=== PATIENT | male | born 1940 | race Caucasian/White ===

== ENCOUNTER 2017-12-10 05:39 | Day surgery (SDC) | payer MEDICARE, OTHER ==
[2017-12-09 10:35] VITALS: BMI 28.7
[2017-12-10] MEDS ORDERED: CEFAZOLIN/Water 2 GM/20 ML SYRINGE ONE ×2 (06:19→09:58)
[2017-12-10] MEDS ORDERED: Thrombin 5000 UNITS/5 ML VIAL ONE (06:28)
[2017-12-10 06:34] LABS: Anion Gap 12 mmol/L (10-20); BUN (Urea Nitrogen) 23 mg/dL (8.4-25.7); Calc. Creatinine Clearance 88 mL/min (70-130); Calcium 9.2 mg/dL (7.8-10.44); Carbon Dioxide 23 mmol/L (23-31); Chloride 107 mmol/L (98-107); Estimated GFR-MDRD 74; Glucose 90 mg/dL (83-110); Potassium 3.8 mmol/L (3.5-5.1); Sodium 138 mmol/L (136-145)
[2017-12-10] MEDS ORDERED: Phenylephrine HCL 10 MG/ML VIAL ONE (06:39)
[2017-12-10] MEDS ORDERED: Fentanyl 100 MCG/2 ML VIAL ONE (06:52)
[2017-12-10] MEDS ORDERED: Famotidine/PF 20 mg/2ml Vial ONE (06:58)
[2017-12-10] MEDS ORDERED: HYDROmorphone 0.5 MG/0.5 ML SYRINGE ONE (08:07)
[2017-12-10] MEDS ORDERED: Tamsulosin HCl 0.4 MG CAP ONE (09:04)
[2017-12-10] MEDS ORDERED: Ondansetron HCl/PF 4 MG/2 ML Vial ONE (10:26)
--- NOTE | 2017-12-10 13:13 | OP ---
DATE OF PROCEDURE: 12/10/2017 SURGEON: Alex Nathan M.D. MANAGER OF ENGINEERING: Silver Villarreal PA-C INDICATION: Pain. DIAGNOSIS: Cervical radiculopathy. PROCEDURE: Anterior cervical discectomy and fusion, C5-6. ANESTHESIA: General. TECHNIQUE: The patient was brought into the operating room and placed on general anesthesia. He was placed on the table in supine position. A transverse incision was planned over the lateral aspect o f the neck on the right. After prepping and draping and after an appropriate operative pause, the in cision was created. The underlying platysma muscles identified and incised. A blunt tissue plane an terior to the sternocleidomastoid muscle was used to gain access to the prevertebral space. Self-ret aining retractors were placed. The wound for optimal exposure. An annulotomy was performed in the C 5-6 disk space. All disk material as well as anterior and posterior osteophytes were removed. After complete decompression, 6 mm lordotic PEEK cage packed with allograft and autograft material was yakov roberto within the interbody space. An anterior cervical plate was then fashioned in front of the spine and secured with a total of 4 fixed screws. Midline and lateral structures were inspected and found to be free from significant trauma. The wound was irrigated. Hemostasis was maintained throughout. The wound was then closed in anatomic layers and a pressure dressing was applied. There were no kno wn procedural complications.
[2017-12-10] MEDS ORDERED: PROPOFOL 200 MG/20 ML VIAL ONE (14:52)
[2017-12-10] MEDS ORDERED: Glycopyrrolate 0.2 MG/ML 5 ML SYRINGE ONE ×2 (14:52)
[2017-12-10] MEDS ORDERED: PHENYLEPHRINE-NS 100 MCG/ML 10 ML SYRINGE ONE (14:52)
[2017-12-10] MEDS ORDERED: Dexamethasone 20 MG/5 ML VIAL ONE (14:52)
[2017-12-10] MEDS ORDERED: Lidocaine 1% PF 5 ML VIAL ONE (14:52)
--- NOTE | 2017-12-12 14:00 | HP ---
HISTORY OF PRESENT ILLNESS: Mr. Salinas is a 77-year-old man who is known to us for two previous lumb ar surgeries who presents now for evaluation of C6, possibly C7 radiculopathy to the left upper extre mity. He has had an MRI of the cervical spine at [facility] that support this with pathology between C5 and C6, impacting the C6 nerve root at that level. He has attempted several conservative treatme nts including injections and therapies and at this time would like to move forward with surgery if po ssible. PAST MEDICAL HISTORY: Significant for hyperlipidemia, gastroesophageal reflux disease, neuropathy, h ypertension. MEDICATIONS: Simvastatin, omeprazole, latanoprost, gabapentin, lisinopril, naproxen, hydrochlorothia zide, ascorbic acid, . PAST SURGICAL HISTORY: Appendectomy, . INCOMPLETE
--- NOTE | 2017-12-13 18:37 | EKG ---
Test Reason : PREOP Blood Pressure : / mmHG Vent. Rate : 055 BPM Atrial Rate : 055 BPM P-R Int : 144 ms QRS Dur : 100 ms QT Int : 474 ms P-R-T Axes : 065 007 -07 degrees QTc Int : 453 ms Sinus bradycardia Otherwise normal ECG When compared with ECG of 17-FEB-2017 07:03, No significant change was found Confirmed by JESSICA GTZ (2) on 12/13/2017 6:37:04 PM Referred By: URBANO Confirmed By:JESSICA GTZ
== END 2017-12-10 10:45 | disposition home or self-care (01) ==
LOC: SDC 05:39
PROVIDERS: ATTEND Neurological Surgery
PROC: 0RG10A0 Fusion of Cervical Vertebral Joint with Interbody Fusion Device, Anterior Approach, Anterior Column, Open Approach (ICD-10-PCS; principal; 2017-12-10)
PROC: 0RT30ZZ Resection of Cervical Vertebral Disc, Open Approach (ICD-10-PCS; 2017-12-10)
DX: M54.12 Radiculopathy, cervical region (principal); E78.5 Hyperlipidemia, unspecified; K21.9 Gastro-esophageal reflux disease without esophagitis; I10 Essential (primary) hypertension; G62.9 Polyneuropathy, unspecified; Z79.1 Long term (current) use of non-steroidal anti-inflammatories (NSAID); Z79.899 Other long term (current) drug therapy
CPT/HCPCS: 20930; 20936; 22551; 22853; 76001; 80048; 93005; C1713; C1776; 36415; 93010; J0131; J1100; J1170; J2001; J2370; J2405; J2704; J3010; S0028

== ENCOUNTER 2018-04-17 20:15 | Inpatient (IN) | payer MEDICARE ==
[2018-04-17 21:40] LABS: Troponin I Less than 0.010 ng/mL (< 0.028)
[2018-04-17] MEDS ORDERED: Ondansetron ODT 4 MG TAB SL PRN (22:48)
[2018-04-17] MEDS ORDERED: Acetaminophen 325 MG TAB PO PRN (22:48)
[2018-04-17] MEDS ORDERED: Ondansetron HCl/PF 4 MG/2 ML Vial IVP PRN (22:48)
[2018-04-17] MEDS ORDERED: Enoxaparin Sodium 120 MG/0.8 ML SYRINGE SC SCH (23:00)
[2018-04-17] MEDS ORDERED: Aspirin 325 MG TAB PO SCH (23:00)
[2018-04-17 23:20] VITALS: BMI 27.5
[2018-04-18] MEDS: Ketorolac Tromethamine 30 MG/ML VIAL IVP PRN ×2 (00:18→10:39)
[2018-04-18] MEDS: Sodium Chloride 0.9% 1,000 ML IV SCH ×2 (00:20→06:18)
[2018-04-18] MEDS ORDERED: Bisacodyl 5 MG TAB PO PRN (00:31)
[2018-04-18 00:56] LABS: #Basophils 0.1 thou/uL (0.0-0.2); #Eosinphils 0.3 thou/uL (0.0-0.7); #Lymphocytes 2.4 thou/uL (1.20-3.40); #Monocytes 0.6 thou/uL (0.11-0.59); #Neutrophils 4.4 thou/uL (1.40-6.50); %Eosinophils 4.3 % (0.0-10.0); %Lymphocytes 31.3 % (21.0-51.0); %Monocytes 7.2 % (0.0-10.0); %Neutrophils 56.2 % (42.0-75.0); Hemoglobin 13.6 g/dL (14.0-18.0); Mean Corpuscular HGB CONC 32.9 g/dL (32.0-36.0); Mean Corpuscular Hemoglobin 31.3 pg (27.0-31.0); Mean Corpuscular Volume 95.4 fL (78.0-98.0); Mean Platelet Volume 7.5 fL (7.4-10.4); Platelet Count 216 thou/uL (130-400); RBC Distribution Width 12.5 % (11.5-14.5); Red Blood Cell (RBC) Count 4.33 mill/uL (4.70-6.10); White Blood Cell (WBC) Count 7.8 thou/uL (4.8-10.8)
[2018-04-18 01:25] LABS: Troponin I Less than 0.010 ng/mL (< 0.028)
[2018-04-18 01:25] LABS: Anion Gap 12 mmol/L (10-20); BUN (Urea Nitrogen) 17 mg/dL (8.4-25.7); Calc. Creatinine Clearance 78 mL/min (70-130); Calcium 8.8 mg/dL (7.8-10.44); Carbon Dioxide 25 mmol/L (23-31); Chloride 105 mmol/L (98-107); Estimated GFR-MDRD 69; Glucose 148 mg/dL (83-110); Potassium 3.5 mmol/L (3.5-5.1); Sodium 138 mmol/L (136-145)
--- NOTE | 2018-04-18 01:31 | HP ---
CHIEF COMPLAINT: Chest pain that was ongoing. HISTORY OF PRESENT ILLNESS: This is a 78-year-old male with past medical history of arthritis, glauc ken, GERD, hypertension, presenting with chest pain at the right lower aspect. The patient was seen at [facility] [place] and the patient was diagnosed with right lower lobe PE. At this point, the patient is being t ransferred to be observed in the hospital and then possibly be discharged in the morning if patient's troponins are negative x2. Of note, patient reports that his chest pain was worse with deep inspira tion and it woke him up from sleep around 0500 hours and it was like stabbing in nature, it was 8/10 aching, dull chest pain. Currently, patient denies any headache, nausea, vomiting, fever, or chills. REVIEW OF SYSTEMS: Positive for right lower flank pain, otherwise as documented in the HPI. All oth er systems were reviewed and were negative. PAST MEDICAL HISTORY: Glaucoma, arthritis, GERD, hypertension. PAST SURGICAL HISTORY: Appendectomy, spinal surgery, cervical and lumbar surgery and tonsillectomy. SOCIAL HISTORY: Patient denies alcohol use, denies illicit drug use. Patient currently uses tobacco . Patient smokes cigars daily and patient smoked 1 pack per day. Patient has been smoked for 30 yea rs. Patient lives at home alone. FAMILY HISTORY: Dad has cardiac disease, stroke, and myocardial infarction in the past. KNOWN ALLERGIES: No known drug allergies. CURRENT MEDICATIONS: The patient is on lisinopril 20 mg, naproxen 500 mg, gabapentin 300 mg, omepraz ole. PHYSICAL EXAMINATION: VITAL SIGNS: Blood pressure 143/80, pulse 59, respiratory rate of 18, temperature 99.3, O2 sat of 96 . GENERAL APPEARANCE: The patient lying in bed, does not appear to be in any distress, speaking in ful l sentences. HEENT: Normocephalic, atraumatic. Pupils are equal, round, and reactive to light. Extraocular move ments are intact. No scleral icterus. NECK: Supple. No JVD. Trachea is midline. LUNGS: Clear to auscultation bilaterally. No wheezing, no rales, no rhonchi appreciated. CARDIOVASCULAR: Positive S1, S2, regular rate and rhythm. No murmurs, no gallops, no rubs appreciat ed. ABDOMEN: Positive bowel sounds in all quadrant. No distention, no masses. No peritoneal signs. EXTREMITIES: Upper extremity: 5 upper extremity strength, good pulses bilaterally. Lower extremity : 5/5 lower extremity strength, good pulses bilaterally. NEUROLOGIC: Cranial nerves II through XII are grossly intact. SKIN: Warm, dry, and intact. PSYCHIATRIC: Normal affect. EKG: Showed normal sinus rhythm, rate about 58. LABORATORY DATA: WBC 9.8, hemoglobin of 15.3, hematocrit of 47.1, platelet count is 223,000. Coagul ation: D-dimer 1.9. Chemistry: Sodium 138, potassium 3.9, chloride 103, carbon dioxide of 24, anio n gap of 15, BUN is 18, creatinine is 1.16, glucose of 178. AST is 14, ALT is 12. CK-MB 2.2, tropon ins less than 0.010. BNP is 44, triglycerides 72, cholesterol 153. Heart disease risk ratio is 3.3. Urinalysis negative for UTI. ASSESSMENT AND PLAN: 1. This is a 78-year-old male being admitted for right lower lobe PE. The patient is currently in admitted to be observed and monitored. The patient is on Lovenox at this time. Continue the patie nt on Lovenox. We will switch patient to p.o. Eliquis and patient can be discharged tomorrow. 2. History of hypertension. Currently, blood pressure has been monitored. We will continue to give the patient his home medications and give patient's blood pressure medication as needed. 3. History of paresthesias. The patient is on gabapentin, we will continue this medication. 4. Hypertension. The patient is on lisinopril 20 mg, we will continue this medication. 5. Deep venous thrombosis and gastrointestinal prophylaxis.
[2018-04-18] MEDS ORDERED: Lisinopril/Hydrochlorothiazide 20/25 mg Tablet PO SCH (09:00)
[2018-04-18] MEDS ORDERED: Non-Formulary Item 1 EACH (Omeprazole [Omeprazole] 20 MG) PO SCH (09:00)
[2018-04-18] MEDS ORDERED: Famotidine 20 MG TAB PO SCH (09:00)
[2018-04-18] MEDS ORDERED: Gabapentin 300 MG CAP PO SCH (09:00)
--- NOTE | 2018-04-18 11:26 | ULT ---
BILATERAL LOWER EXTREMITY VENOUS ULTRASOUND WITH DOPPLER: History: Known pulmonary emboli. Evaluate for thrombus. Comparison: None. FINDINGS: Grayscale, color flow, doppler imaging and spectral waveform analysis was performed of the left and r ight lower extremity system. In the left leg, there is compressibility, presence of flow, and augmentation of the common femoral v ein, femoral vein, and popliteal vein. There is flow is the greater saphenous vein, profunda vein and posterior tibial vein. In the right leg, there is thrombus involving the right common femoral vein, femoral vein and poplite al vein. There is also partial thrombus in the popliteal vein. IMPRESSION: Right lower extremity deep venous thrombus. POS: [facility]
[2018-04-18 11:27] VITALS: BP 134/61; TEMP 98
[2018-04-18] MEDS ORDERED: Apixaban 5 MG TAB PO SCH (13:00)
[2018-04-18] MEDS ORDERED: Simvastatin 40 MG TAB PO SCH (21:00)
[2018-04-18] MEDS ORDERED: Latanoprost 0.005% Ophth Soln 2.5 ml Bottle EA EYE SCH (21:00)
[2018-04-18] MEDS ORDERED: Atorvastatin Calcium 20 MG TAB PO SCH (21:00)
== END 2018-04-18 14:00 | disposition home or self-care (01) | DRG 176 ==
LOC: ERS 20:15 → 2NO 22:32
PROVIDERS: ADMIT Internal Medicine; ATTEND Internal Medicine
DX: I26.99 Other pulmonary embolism without acute cor pulmonale (principal); I10 Essential (primary) hypertension; M19.90 Unspecified osteoarthritis, unspecified site; H40.9 Unspecified glaucoma; K21.9 Gastro-esophageal reflux disease without esophagitis; F17.210 Nicotine dependence, cigarettes, uncomplicated; R20.2 Paresthesia of skin
CPT/HCPCS: 36415; 80048; 84484; 85025; 93005; 93970; A4216; J1885

== ENCOUNTER 2019-08-01 11:43 | Day surgery (SDC) | payer MEDICARE ==
[2019-07-31 12:55] VITALS: BMI 27.6
[~2019-08-01 11:43] MED LIST: Dexamethasone 20 MG/5 ML VIAL ONE; Ondansetron PF 4 MG/2 ML Vial ONE; PROPOFOL 200 MG/20 ML VIAL ONE
[2019-08-01 12:14] LABS: Hemoglobin 16.1 g/dL (14.0-18.0)
[2019-08-01 12:41] LABS: Anion Gap 12 mmol/L (10-20); BUN (Urea Nitrogen) 16 mg/dL (8.4-25.7); Calc. Creatinine Clearance 74 mL/min (70-130); Calcium 9.7 mg/dL (7.8-10.44); Carbon Dioxide 28 mmol/L (23-31); Chloride 105 mmol/L (98-107); Estimated GFR-MDRD 65; Glucose 90 mg/dL (83-110); Potassium 4.1 mmol/L (3.5-5.1); Sodium 141 mmol/L (136-145)
[2019-08-01] MEDS ORDERED: Bacitracin Zinc Ointment 30 gm TUBE ONE (14:20)
[2019-08-01] MEDS ORDERED: Lidocaine 1% w/Epinephrine 1:100K 20 ML VIAL ONE (14:20)
[2019-08-01] MEDS ORDERED: Fentanyl 100 MCG/2 ML VIAL ONE (14:31)
[2019-08-01] MEDS ORDERED: SUGAMMADEX SODIUM 200 MG/2 ML VIAL ONE (15:16)
--- NOTE | 2019-08-02 11:39 | OP ---
DATE OF PROCEDURE: 08/01/2019 POSTOPERATIVE DIAGNOSIS: Posterior neck mass roughly 6 cm. PROCEDURES PERFORMED: Excision of posterior neck mass and closure of neck wound and application of drain. PERMIT: Procedures, benefits, risks including of the bleeding, infection, injury, anesthesia, allergic reaction, scarring necessitating revision or repair. Alternatives were reviewed with the patient and family, who expressed understanding of this information. The consent form was signed and witnessed and a paper copy of the consent form is available for review in the paper chart. INDICATIONS: This is a male patient, presenting to clinic with an enlarging posterior neck mass that is uncomfortable and causing pain with sleeping and is tender to palpation and occasionally swells, feels hot, warm, and tender to the touch. ASSISTANTS: None. FINDINGS: Large 6 cm neck mass with significant subcutaneous scarring and inflammation concerning for an inflammatory reaction possibly with concurrent infection inside the mass. DESCRIPTION OF OPERATION: The patient was brought to the operating room and laid prone on the operating room table. After general endotracheal anesthesia was administered, the posterior neck was cleaned with alcohol and marked, and 6 mL of 1% lidocaine with 1:100,000 epinephrine was injected around the midline posterior neck mass. The patient was then prepped and draped in the usual fashion. The mass was palpated and found to be firmly fixed in place with some scarring. A horizontal elliptical incision removing a small elliptical approximately 1 cm in size of skin overlying the mass. The area was incised with 15 blade scalpel. Next, dissection was carried down with Bovie cautery down thick scar from the mass and working outward from the mass to elevate and mobilize the mass. Significant inflammation and scarring made the dermis thick and the subcutaneous tissue difficult to identify. However, eventually the subcutaneous tissue was identified and blunt dissection was used with tenotomy scissors and with Adson to help elevate and mobilize the mass. Next, Bovie cautery was used to separate the mass from the subcutaneous tissue. The mass extended down to the posterior neck muscle and through the subcutaneous tissue down to the musculature. The muscles were not violated or incised, however remained intact and the mass was removed in its entirety without spilling any of the mass contents. However, the mass felt somewhat fluctuant with some firm component as well and a small elliptical shaped approximately 1 cm in diameter by 2.5 cm in length skin was removed with the mass. The cavity was then thoroughly inspected and any bleeding was cauterized with bipolar cautery. The wound was then irrigated copiously. The wound was then closed in layers with 3-0 Vicryl subcutaneous stitches, as well as interrupted 3-0 Prolene suture. One quarter-inch Coco drain was also placed in the center of the wound in order to allow drainage and a dressing was placed. The patient was turned over to Anesthesia for emergence and the patient tolerated the surgery with no complications. ESTIMATED BLOOD LOSS: 5 mL. DRAINS: Quarter-inch [place] was placed. SPECIMENS: Sent for permanent pathology. IMPLANTS: There were no implants. Job ID: [id number]
== END 2019-08-01 17:47 | disposition home or self-care (01) ==
LOC: SDC 11:43
PROVIDERS: ATTEND Student in an Organized Health Care Education/Training Program
PROC: 0JB40ZZ Excision of Right Neck Subcutaneous Tissue and Fascia, Open Approach (ICD-10-PCS; principal; 2019-08-01)
DX: L72.0 Epidermal cyst (principal); I10 Essential (primary) hypertension; E78.00 Pure hypercholesterolemia, unspecified; K21.9 Gastro-esophageal reflux disease without esophagitis; G47.33 Obstructive sleep apnea (adult) (pediatric); F17.290 Nicotine dependence, other tobacco product, uncomplicated; Z79.01 Long term (current) use of anticoagulants; Z79.899 Other long term (current) drug therapy; Z99.89 Dependence on other enabling machines and devices; Z98.1 Arthrodesis status
CPT/HCPCS: 36415; 80048; 85014; 85018; 88304; J1100; J2405; J2704; J3010

== ENCOUNTER 2019-09-05 06:22 | Outpatient (CLI) | payer MEDICARE ==
[2019-09-05 13:53] LABS: #Basophils 0.1 thou/uL (0.0-0.2); #Eosinphils 0.3 thou/uL (0.0-0.7); #Lymphocytes 2.9 thou/uL (1.20-3.40); #Monocytes 0.6 thou/uL (0.11-0.59); %Eosinophils 3.2 % (0.0-10.0); %Lymphocytes 36.8 % (21.0-51.0); %Monocytes 7.1 % (0.0-10.0); %Neutrophils 51.8 % (42.0-75.0); Hemoglobin 15.6 g/dL (14.0-18.0); Mean Corpuscular HGB CONC 34.3 g/dL (32.0-36.0); Mean Corpuscular Hemoglobin 33.3 pg (27.0-31.0); Mean Corpuscular Volume 97.1 fL (78.0-98.0); Mean Platelet Volume 7.8 fL (7.4-10.4); Platelet Count 212 thou/uL (130-400); RBC Distribution Width 12.7 % (11.5-14.5); Red Blood Cell (RBC) Count 4.69 mill/uL (4.70-6.10); White Blood Cell (WBC) Count 7.7 thou/uL (4.8-10.8)
[2019-09-05 14:22] LABS: Anion Gap 13 mmol/L (10-20); BUN (Urea Nitrogen) 13 mg/dL (8.4-25.7); Calc. Creatinine Clearance 0 mL/min (70-130); Calcium 9.8 mg/dL (7.8-10.44); Carbon Dioxide 27 mmol/L (23-31); Chloride 105 mmol/L (98-107); Estimated GFR-MDRD 77; Glucose 82 mg/dL (83-110); Potassium 3.8 mmol/L (3.5-5.1); Sodium 141 mmol/L (136-145)
== END 2019-09-05 06:23 | disposition home or self-care (01) ==
LOC: LABBT 06:22
PROVIDERS: ATTEND Orthopaedic Surgery
DX: Z01.812 Encounter for preprocedural laboratory examination (principal); M65.332 Trigger finger, left middle finger; G56.02 Carpal tunnel syndrome, left upper limb
CPT/HCPCS: 80048; 85025; 93005; 93010

== ENCOUNTER 2019-09-07 09:32 | Day surgery (SDC) | payer MEDICARE ==
[2019-09-05 11:32] VITALS: BMI 27.6
[2019-09-07] MEDS ORDERED: Lidocaine 1% w/Epinephrine 1:100K 20 ML VIAL ONE (11:54)
[2019-09-07] MEDS ORDERED: Lidocaine 1% PF 5 ML VIAL ONE (14:30)
[2019-09-07] MEDS ORDERED: EPHEDRINE 25 MG/5 ML SYRINGE ONE (14:30)
[2019-09-07] MEDS ORDERED: PROPOFOL 200 MG/20 ML VIAL ONE (14:30)
[2019-09-07] MEDS ORDERED: Glycopyrrolate 0.2 MG/ML 5 ML SYRINGE ONE (14:30)
--- NOTE | 2019-09-08 11:02 | OP ---
DATE OF PROCEDURE: 09/07/2019 PREOPERATIVE DIAGNOSES: 1. Left carpal tunnel syndrome. 2. Left trigger finger, middle finger. POSTOPERATIVE DIAGNOSES: 1. Left carpal tunnel syndrome. 2. Left trigger finger, middle finger. PROCEDURES PERFORMED: 1. Open left carpal tunnel release. 2. Left middle finger trigger finger release. ANESTHESIOLOGIST: Bonnie López MD ANESTHESIA: The patient received a LMA with 4 mL of 1% lidocaine with epinephrine. ESTIMATED BLOOD LOSS: Less than 10 mL. TOURNIQUET TIME: 13 minutes at 250 mmHg. ANTIBIOTICS: Ancef 2 g. COMPLICATIONS: None. HISTORY OF PRESENT ILLNESS: Mr. Salinas is a 79-year-old male with left carpal tunnel syndrome, history of triggering, middle finger. I discussed the risks and benefits of a trigger finger release, carpal tunnel release including pain, scar, bleeding, infection, damage to vital structures, decreased range of motion and strength, damage to the nerve, continued pain despite surgical intervention, and loss of life or limb. The patient understood the risks and benefits of the procedure and elected to proceed. DESCRIPTION OF PROCEDURE: Time-out was performed designating the patient's left upper extremity as the operative site based on site, consents, and marking. After time-out, the patient's left upper extremity was prepped and draped in a sterile fashion. Tourniquet was brought up and left for 13 minutes. We distally made a transverse incision over the middle finger, bluntly dissected down from A1 sebastian, cut in-line, ensured it was released distally, pulled the tendon of the wound, had good full release of the tendon gliding, ensured it was proximally and distally released, washed and closed with mattress sutures of 4-0 nylon. I then moved proximally using Tolbert's cardinal line down through skin to one of the flexor crease on the radial aspect of the fourth ray down through skin, bluntly dissected the palmar fascia, transected, came down through the transverse carpal ligament and palmaris brevis, dissecting sharply with a hemostat, protecting the nerve down, completely releasing made sure that it was completely released proximally, washed and I closed with 4-0 nylon. tourniquet was let down. Bleeding was controlled and I closed with 4-0 nylon. I injected a little more local in line with my carpal tunnel incision as well as my hand incision and closed. The patient will be discharged home and follow up with me in about 10 to 12 days for suture removal. Job ID: [id number]
== END 2019-09-07 15:25 | disposition home or self-care (01) ==
LOC: SDC 09:32
PROVIDERS: ATTEND Orthopaedic Surgery
PROC: 01N50ZZ Release Median Nerve, Open Approach (ICD-10-PCS; principal; 2019-09-07)
PROC: 0LN80ZZ Release Left Hand Tendon, Open Approach (ICD-10-PCS; 2019-09-07)
DX: G56.02 Carpal tunnel syndrome, left upper limb (principal); M65.332 Trigger finger, left middle finger; E78.5 Hyperlipidemia, unspecified; I10 Essential (primary) hypertension; K21.9 Gastro-esophageal reflux disease without esophagitis; F17.290 Nicotine dependence, other tobacco product, uncomplicated; E78.00 Pure hypercholesterolemia, unspecified; G47.33 Obstructive sleep apnea (adult) (pediatric); Z79.01 Long term (current) use of anticoagulants; Z79.899 Other long term (current) drug therapy
CPT/HCPCS: J0690; J2001; J2704

== ENCOUNTER 2020-04-29 08:40 | Outpatient (CLI) | payer MEDICARE ==
--- NOTE | 2020-04-29 10:03 | ULT ---
Sonogram abdomen complete HISTORY: Abdomen pain. FINDINGS: Gallbladder has a normal appearance. Common duct is 0.3 cm. Liver is unremarkable without focal mass or intrahepatic biliary dilatation. No free fluid. A cyst projecting from the anterior medial cortex of the left kidney is 5.4 cm greatest diameter. No solid masses. No evidence of urinary tract obstruction. The spleen, right kidney, and visualized portions of abdominal aorta, IVC, and pancreas are within no rmal limits. IMPRESSION : Left renal cyst is stable compared to prior CT from 10/01/2016. It is NOT likely to be causing the misha ent's symptoms.
== END 2020-04-29 08:41 | disposition home or self-care (01) ==
LOC: SCSULT 08:40
DX: R07.81 Pleurodynia (principal); N28.1 Cyst of kidney, acquired
CPT/HCPCS: 93975

== ENCOUNTER 2020-09-24 10:12 | Outpatient (CLI) | payer MEDICARE ==
--- NOTE | 2020-09-24 11:47 | MRI ---
MRI OF RIGHT SHOULDER PERFORMED WITHOUT CONTRAST ENHANCEMENT: HISTORY: Right shoulder injury. FINDINGS: There is moderate arthrosis of the AC joint. There is a massive rotator cuff tear involving basicall y the entirety of the supra- as well as infraspinatus tendons. The tendons are retracted by approxim ately 3 cm. Some of the posterior most fibers of the infraspinatus tendon may still be intact. There is also a partial tear of the superior fibers of the subscapularis tendon which is thin and att enuating in appearance. There is also some tendinopathy change. The biceps tendon does lie in a nor mal position within the bicipital groove. Bicipital labral complex shows increased signal change posterior to the biceps anchor. This is proba xena related to more of a chronic SLAP-type tear. This tear does extend into the posterior superior l abrum to at least mid equator level and probably involving a portion of the posterior inferior labrum . I do not appreciate any significant rotator cuff muscle atrophy. A large partially visualized lipoma is seen. It is along the more anterior border of the posterior portion of the deltoid musculature i nvolving the more spinal component of the deltoid musculature. It appears intramuscular superiorly b ut as it extends inferiorly it is more interposed between the teres minor muscle and the deltoid. Th is measures approximately 5.2 cm in length. It has benign-appearing features. IMPRESSION: 1. Massive rotator cuff tear involving the supra- and infraspinatus tendons. There may be a few fib ers of the infraspinatus tendon that are intact. The tendon is retracted by approximately 3 cm. The re is also a partial tear of the superior fibers of the subscapularis tendon. 2. Labral tear beginning just posterior to the biceps anchor and extending into the posterior superi or and even partially into the posterior and inferior labrum.. 3. Lipoma along the posterior deltoid musculature as discussed above. POS: [facility]
== END 2020-09-24 10:13 | disposition home or self-care (01) ==
LOC: SCSMRI 10:12
PROVIDERS: ATTEND Orthopaedic Surgery
DX: S46.911A Strain of unspecified muscle, fascia and tendon at shoulder and upper arm level, right arm, initial encounter (principal); D17.9 Benign lipomatous neoplasm, unspecified; S43.431A Superior glenoid labrum lesion of right shoulder, initial encounter; M75.111 Incomplete rotator cuff tear or rupture of right shoulder, not specified as traumatic

== ENCOUNTER 2020-10-17 10:30 | Inpatient (IN) | payer MEDICARE ==
[2020-10-23 09:08] VITALS: BMI 28.7
[2020-10-24] MEDS ORDERED: Milk Of Magnesia 30 ML UDCUP PO PRN (07:16)
[2020-10-24] MEDS ORDERED: Acetaminophen 325 MG TAB PO PRN (07:16)
[2020-10-24] MEDS ORDERED: Zolpidem Tartrate 5 MG TAB PO PRN ×2 (07:16→09:15)
[2020-10-24] MEDS ORDERED: Bisacodyl 10 MG SUPP PR PRN (07:16)
[2020-10-24] MEDS ORDERED: diphenhydrAMINE 50 MG CAP PO PRN (07:16)
[2020-10-24] MEDS ORDERED: Ondansetron ODT 4 MG TAB PO PRN (07:16)
[2020-10-24] MEDS ORDERED: Ondansetron PF 4 MG/2 ML Vial IVP PRN ×2 (07:16→09:15)
[2020-10-24] MEDS ORDERED: Methocarbamol 500 MG TAB PO PRN (07:16)
[2020-10-24] MEDS ORDERED: HYDROcodone/Acetaminophen 10/325 mg Tablet PO PRN ×2 (07:16)
[2020-10-24] MEDS ORDERED: Methocarbamol 1 GM/10 ML VIAL SLOW IVP PRN (07:16)
[2020-10-24] MEDS ORDERED: traMADol HCl 50 MG TAB PO PRN ×4 (07:16→09:15)
[2020-10-24] MEDS ORDERED: Tranexamic Acid 1,000 MG/10 ML VIAL ONE ×2 (07:30→11:29)
[2020-10-24] MEDS ORDERED: Sodium Chloride 0.9% 100 ML ONE (07:30)
[2020-10-24] MEDS ORDERED: Vancomycin 1.5 GRAM/300 ML BAG ONE (07:30)
[2020-10-24] MEDS ORDERED: Fentanyl 100 MCG/2 ML VIAL ONE ×3 (07:46→11:33)
[2020-10-24] MEDS ORDERED: Midazolam HCl 2 mg/2 ml Vial ONE (07:46)
[2020-10-24] MEDS ORDERED: Sodium Chloride 0.9% 10 ML ONE (07:46)
[2020-10-24] MEDS ORDERED: Glycopyrrolate 0.2 MG/ML 5 ML SYRINGE ONE (08:17)
[2020-10-24] MEDS ORDERED: PHENYLEPHRINE-NS 100 MCG/ML 10 ML SYRINGE ONE (08:17)
[2020-10-24] MEDS ORDERED: Bupivacaine HCl 0.5%/Epinephrine 1:200,000/PF 30 ml Vial ONE (08:17)
[2020-10-24] MEDS ORDERED: Ondansetron PF 4 MG/2 ML Vial ONE (08:17)
[2020-10-24] MEDS ORDERED: Lidocaine 1% PF 5 ML VIAL ONE (08:17)
[2020-10-24] MEDS ORDERED: Rocuronium Bromide 10 MG/ML (10ML VIAL) ONE (08:17)
[2020-10-24] MEDS ORDERED: ePHEDrine 50 MG/ML VIAL ONE (08:17)
[2020-10-24] MEDS ORDERED: PROPOFOL 200 MG/20 ML VIAL ONE (08:17)
[2020-10-24] MEDS ORDERED: HYDROcodone/Acetaminophen 5/325 mg Tablet PO PRN (09:15)
[2020-10-24] MEDS ORDERED: Promethazine HCl 25 MG/ML VIAL IM PRN (09:15)
[2020-10-24] MEDS ORDERED: Ropivacaine 0.2% 550 ML 550 ML NERVE BLCK SCH (09:15)
[2020-10-24] MEDS ORDERED: Meperidine HCl/PF 25 MG/ML VIAL SLOW IVP PRN (10:13)
[2020-10-24] MEDS ORDERED: Promethazine HCl 25 MG/ML VIAL SLOW IVP PRN (10:13)
[2020-10-24] MEDS ORDERED: Ondansetron HCl/PF 4 MG/2 ML Vial IVP PRN (10:13)
[2020-10-24] MEDS: Famotidine 20 MG TAB PO SCH ×2 (12:45→20:29)
[2020-10-24] MEDS: CEFAZOLIN 2 GM in Premix Bag 1 BAG IVPB SCH (15:50)
[2020-10-24] MEDS: Dextrose 5 %-0.45 % NaCl 1,000 ML IV SCH (15:51)
[2020-10-24] MEDS ORDERED: Vancomycin 1.5 GRAM/300 ML BAG 1.5 GM in Premix Bag 1 BAG IVPB SCH (20:00)
[2020-10-24] MEDS: HYDROcodone/Acetaminophen 5/325 mg Tablet PO PRN (20:29)
[2020-10-24] MEDS ORDERED: Atorvastatin Calcium 10 MG TAB PO SCH (21:00)
[2020-10-24] MEDS ORDERED: Latanoprost 0.005% Ophth Soln 2.5 ml Bottle EA EYE SCH (21:00)
[2020-10-24] MEDS ORDERED: Gabapentin 300 MG CAP PO SCH (21:00)
[2020-10-25] MEDS: Dextrose 5 %-0.45 % NaCl 1,000 ML IV SCH ×2 (01:37→13:18)
[2020-10-25] MEDS: CEFAZOLIN 2 GM in Premix Bag 1 BAG IVPB SCH (01:43)
[2020-10-25] MEDS: Famotidine 20 MG TAB PO SCH (08:50)
[2020-10-25] MEDS ORDERED: Cholecalciferol 1,000 UNITS (25 MCG) TAB PO SCH (09:00)
[2020-10-25] MEDS ORDERED: Lisinopril/Hydrochlorothiazide 20/25 mg Tablet PO SCH (09:00)
[2020-10-25] MEDS ORDERED: Cyanocobalamin (Vitamin B-12) 1,000 MCG TAB PO SCH (09:00)
[2020-10-25] MEDS ORDERED: Apixaban 2.5 MG TAB PO SCH (09:00)
[2020-10-25] MEDS: HYDROcodone/Acetaminophen 5/325 mg Tablet PO PRN ×2 (09:49→15:04)
[2020-10-25 11:51] VITALS: BP 144/65; TEMP 98
== END 2020-10-25 15:28 | disposition home or self-care (01) | DRG 483 ==
LOC: SURG A 10-24 06:34
PROVIDERS: ADMIT Orthopaedic Surgery; ATTEND Orthopaedic Surgery
PROC: 0RRJ00Z Replacement of Right Shoulder Joint with Reverse Ball and Socket Synthetic Substitute, Open Approach (ICD-10-PCS; principal; 2020-10-24)
PROC: 0LS30ZZ Reposition Right Upper Arm Tendon, Open Approach (ICD-10-PCS; 2020-10-24)
DX: M75.121 Complete rotator cuff tear or rupture of right shoulder, not specified as traumatic (principal); I10 Essential (primary) hypertension; E78.00 Pure hypercholesterolemia, unspecified; K21.9 Gastro-esophageal reflux disease without esophagitis; G47.33 Obstructive sleep apnea (adult) (pediatric); M75.21 Bicipital tendinitis, right shoulder; F17.290 Nicotine dependence, other tobacco product, uncomplicated; Z90.49 Acquired absence of other specified parts of digestive tract; Z90.89 Acquired absence of other organs
CPT/HCPCS: 80048; 85025; 85610; 86850; 86900; 86901; 87635; 93005; 93010; A4306; C1713; C1776; J0690; J2250; J2405; J2704; J2795; J3010; J3370; J3490; Q0162; U0003; U0005

== ENCOUNTER 2020-10-21 09:39 | Outpatient (CLI) | payer MEDICARE ==
[2020-10-21 11:32] LABS: #Basophils 0.1 10x3/uL (0.0-0.2); #Eosinphils 0.2 10x3/uL (0.0-0.5); #Monocytes 0.5 10x3/uL (0.0-1.1); #Neutrophils 4.2 10x3/uL (1.5-8.4); %Basophils 0.7 % (0.0-2.0); %Eosinophils 2.2 % (0.0-6.0); %Lymphocytes 31.7 % (18.0-47.0); %Monocytes 7.4 % (0.0-10.0); %Neutrophils 57.7 % (40.0-75.0); Hemoglobin 14.9 g/dL (13.5-17.5); Mean Corpuscular HGB CONC 33.3 g/dL (32.0-36.0); Mean Corpuscular Hemoglobin 32.2 pg (27.0-33.0); Mean Corpuscular Volume 96.8 fl (81.2-95.1); Mean Platelet Volume 10.3 fl (7.4-10.4); Platelet Count 207 10x3/uL (150-450); RBC Distribution Width 14.1 % (11.5-14.5); Red Blood Cell (RBC) Count 4.63 10x6/uL (4.32-5.72); White Blood Cell (WBC) Count 7.3 10x3/uL (3.5-10.5)
[2020-10-21 11:43] LABS: Anion Gap 13 mmol/L (10-20); BUN (Urea Nitrogen) 19 mg/dL (8.4-25.7); Calc. Creatinine Clearance 0 mL/min (70-130); Calcium 9.4 mg/dL (7.8-10.44); Carbon Dioxide 28 mmol/L (23-31); Chloride 103 mmol/L (98-107); Glucose 74 mg/dL (83-110); Potassium 4.2 mmol/L (3.5-5.1); Sodium 140 mmol/L (136-145)
[2020-10-21 12:04] LABS: Prothrombin Time 10.2 sec (9.5-12.1)
[2020-10-21 22:21] LABS: SARS-CoV-2 PCR by NAA Not Detected (NotDetected)
== END 2020-10-21 09:40 | disposition home or self-care (01) ==
LOC: LABBT 09:39
PROVIDERS: ATTEND Orthopaedic Surgery
DX: Z01.818 Encounter for other preprocedural examination (principal); S46.011A Strain of muscle(s) and tendon(s) of the rotator cuff of right shoulder, initial encounter; Z20.822 Contact with and (suspected) exposure to COVID-19
CPT/HCPCS: 80048; 85025; 85610; 93005; U0003; U0005; 87635; 93010

== ENCOUNTER 2022-06-01 09:23 | Outpatient (CLI) | payer MEDICARE ==
[2022-06-01 10:42] LABS: #Basophils 0.1 10x3/uL (0.0-0.2); #Eosinphils 0.3 10x3/uL (0.0-0.5); #Monocytes 0.7 10x3/uL (0.0-1.1); #Neutrophils 4.6 10x3/uL (1.5-8.4); %Basophils 0.6 % (0.0-2.0); %Eosinophils 3.3 % (0.0-6.0); %Lymphocytes 29.9 % (18.0-47.0); %Monocytes 8.8 % (0.0-10.0); %Neutrophils 57.3 % (40.0-75.0); Hemoglobin 14.1 g/dL (13.5-17.5); Mean Corpuscular HGB CONC 34.6 g/dL (32.0-36.0); Mean Corpuscular Hemoglobin 32.6 pg (27.0-33.0); Mean Corpuscular Volume 94.2 fl (81.2-95.1); Platelet Count 209 10x3/uL (150-450); Red Blood Cell (RBC) Count 4.33 10x6/uL (4.32-5.72)
[2022-06-01 11:18] LABS: INR-International Normal Ratio 0.9; Prothrombin Time 10.3 sec (9.5-12.1)
== END 2022-06-01 09:24 | disposition home or self-care (01) ==
LOC: LABBT 09:23
PROVIDERS: ATTEND Orthopaedic Surgery
DX: Z01.818 Encounter for other preprocedural examination (principal); G56.01 Carpal tunnel syndrome, right upper limb; G56.21 Lesion of ulnar nerve, right upper limb
CPT/HCPCS: 85025; 85610; 93005; 93010

== ENCOUNTER 2022-06-04 06:51 | Day surgery (SDC) | payer MEDICARE ==
[2022-06-03 14:39] VITALS: BMI 27.8
[2022-06-04] MEDS ORDERED: Lidocaine 1% MPF 2 ML VIAL ONE (07:32)
[2022-06-04] MEDS ORDERED: Sodium Chloride 0.9% 100 ML ONE (07:32)
[2022-06-04] MEDS ORDERED: CEFAZOLIN 2 GM VIAL ONE (07:32)
[2022-06-04] MEDS ORDERED: Lidocaine 1% (PF) 30 ML VIAL ONE (09:21)
[2022-06-04] MEDS ORDERED: EPINEPHrine 1 MG/ML AMP ONE (09:21)
[2022-06-04] MEDS ORDERED: fentaNYL PF 100 MCG/2 ML SYRINGE ONE (09:49)
== END 2022-06-04 12:32 | disposition home or self-care (01) ==
LOC: SDC 06:51
PROVIDERS: ATTEND Orthopaedic Surgery
PROC: 01N50ZZ Release Median Nerve, Open Approach (ICD-10-PCS; principal; 2022-06-04)
PROC: 01N40ZZ Release Ulnar Nerve, Open Approach (ICD-10-PCS; 2022-06-04)
DX: G56.21 Lesion of ulnar nerve, right upper limb (principal); G56.01 Carpal tunnel syndrome, right upper limb; G47.33 Obstructive sleep apnea (adult) (pediatric); I10 Essential (primary) hypertension; K21.9 Gastro-esophageal reflux disease without esophagitis; F17.290 Nicotine dependence, other tobacco product, uncomplicated; E78.00 Pure hypercholesterolemia, unspecified; M19.90 Unspecified osteoarthritis, unspecified site; Z79.01 Long term (current) use of anticoagulants; Z79.899 Other long term (current) drug therapy
CPT/HCPCS: J0171; J2001; J3490